=== PATIENT | female | born 2005 | race Hispanic/Latino ===

== ENCOUNTER 2023-10-04 04:16 | Observation (INO) | payer BC ==
[2023-10-04] MEDS ORDERED: ONDANSETRON 4 MG/2 ML VIAL ONE ×2 (04:35→11:34)
[2023-10-04] MEDS ORDERED: NA CHLORIDE 0.9% 1,000 ML ONE ×2 (04:35→08:31)
[2023-10-04] MEDS ORDERED: MORPHINE 4 MG/ML SYR ONE (04:35)
[2023-10-04 05:09] LABS: Sqamous Epithelial <5 /HPF (None Seen); Urine Bacteria None Seen /HPF (<20); Urine Bilirubin NEGATIVE (Negative); Urine Blood Negative (Negative); Urine Clarity Extremely Turbid (Clear); Urine Color Light-Yellow (Yellow); Urine Culture Reflex Order NOT NEEDED; Urine Glucose NEGATIVE (Negative); Urine Ketones NEGATIVE (Negative); Urine Microscopic Reflex YN ORDER UMIC; Urine Mucus Slight /HPF (None Seen); Urine Nitrite NEGATIVE (Negative); Urine Protein 1+ (Negative); Urine RBC None Seen /HPF (None Seen); Urine Urobilinogen Normal (Normal); Urine WBC <5 /HPF (<5); Urine pH 8.5 (5.0-7.0)
[2023-10-04 05:13] LABS: Absolute Lymphocytes (CBC) 1.1 K/uL (0.7-4.9); Absolute Monocytes 0.7 K/uL (0.1-1.3); Absolute Neutrophil 13.3 K/uL (1.8-8.0); Basophils % 0.2 % (0-1.3); Eosinophils % 0.2 % (0-4.4); Hematocrit 40.7 % (36.0-45.0); Hemoglobin 13.6 g/dL (12.0-15.0); Lymphocytes % 7.4 % (15.3-44.8); MCH 30.1 pg (27.0-35.0); MCHC 33.4 g/dL (32.0-36.0); MCV 90.1 fL (80-100); MPV 8.5 fL (7.6-11.3); Monocytes % 4.6 % (3.3-12.3); Neutrophils % 87.6 % (41.7-73.7); Platelets 252 thou/uL (152-406); RBC Red Blood Cell Count 4.52 M/uL (3.86-4.86); Red Cell Distribution Width 13.1 % (12.1-15.2)
[2023-10-04 05:27] LABS: Albumin 4.4 g/dL (3.4-5.0); Albumin/Globulin Ratio 1.3 (1.1-1.8); Anion Gap 8.1 mEq/L (5.0-15.0); Bilirubin Total 0.9 mg/dL (0.2-1.0); Globulin 3.4 g/dL (2.3-3.5); Potassium 4.1 mEq/L (3.5-5.1); Protein, Total 7.8 g/dL (6.4-8.2)
[2023-10-04 05:46] LABS: Band Neutrophils 13 % (0-1); Differential Total Cells Count 100; Lymphocytes 3 % (15-42); Monocytes 2 % (0-10); Segmented Neutrophils 82 % (40-80)
[2023-10-04 05:47] LABS: Blood Morphology Comment NOT SEEN (NOT SEEN); Platelet Estimate ADEQ
[2023-10-04] MEDS ORDERED: PIPERACIL/TAZO 3.375 GM VIAL IV ONE (08:31)
[2023-10-04] MEDS ORDERED: NA CHLORIDE 0.9% 100 ML ONE (08:34)
--- NOTE | 2023-10-04 09:03 | EDPHYS ---
Physician Documentation [facility] Name: Emily Felix Age: 18 yrs Sex: Female : 2005 Arrival Date: 10/04/2023 Time: 04:16 Bed 6 Private MD: ED Physician John Hutchinson HPI: 10/03 05:00 This 18 yrs old Female presents to ER via Ambulatory with complaints of ec2 Abdominal Pain. 05:00 Patient arrives today for evaluation of upper abdominal pain started yesterday. Pain ec2 has been constant, associated nausea. No urinary complaints, patient with irregular menses. No fevers or chills. No previous abdominal surgeries. . 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 - Infectious Disease History:: Denies. - Social history:: Smoking status: Patient denies any tobacco usage or history of. ROS: 05:52 Constitutional: as per hpi ec2 Exam: 05:00 Constitutional: GEN: NAD Head: atraumatic Eyes: EOMI Ears: External ears are ec2 normal. CV: regular rate LUNGS: no respiratory distress ABD: non-distended, soft, tender in the epigastrium, not guarding, not rigid. SKIN: no evidence of rashes MSK: no evidence of trauma NEURO: moves all extremities equally Vital Signs: 04:34 BP 139 / 73; Pulse 87; Resp 16; Temp 98; Pulse Ox 100% ; Weight 68.04 kg; Height 5 ft. vc1 1 in. ; Pain 10/10; 04:34 Body Mass Index 28.34 (68.04 kg, 154.94 cm) vc1 04:34 Pain Scale: Adult vc1 MDM: 04:23 Patient medically screened. ec2 05:00 Data reviewed: vital signs. ED course: Patient arrives today for evaluation of upper ec2 abdominal pain. Examination remarkable abdominal findings as noted above. Will obtain lab work, CT imaging, urine studies. Differential diagnosis include , gastritis, UTI, Appendicitis. . 05:52 ED course: Metabolic profile shows appropriate electrolytes and renal function. CBC ec2 shows slight leukocytosis at 15. Urine is noninfectious appearing, urine is negative for . Pending CT imaging. . 07:11 Transition of care: After a detail discussion of the patient's case, care is ec2 transferred to John Hutchinson MD. 10/03 04:44 Order name: Comprehensive Metabolic Panel; Complete Time: 05:52 EDMS 10/03 04:44 Order name: Lipase; Complete Time: 05:52 EDMS 10/03 04:44 Order name: CBC with Automated Diff; Complete Time: 05:52 EDMS 10/03 04:47 Order name: Urinalysis w/ reflexes; Complete Time: 05:09 EDMS 10/03 04:47 Order name: Test, Urine; Complete Time: 05:09 EDMS 10/03 05:15 Order name: Manual Differential; Complete Time: 05:52 EDMS 10/03 04:46 Order name: Abdomen EDMS 10/03 04:28 Order name: IV Saline Lock; Complete Time: 04:46 ec2 10/03 04:28 Order name: Labs collected and sent; Complete Time: 04:46 ec2 Administered Medications: 04:45 Drug: NS 0.9% IV 1000 ml IV at 1 bolus Per protocol; 1000 mL bolus Route: IV; Rate: 1 lg3 bolus; Site: right antecubital; 05:49 Follow up: Response: No adverse reaction; IV Status: Completed infusion; IV Intake: lg3 1000ml 04:45 Drug: Ondansetron IVP 4 mg IVP once; over 2 minutes Route: IVP; Site: right antecubital;lg3 05:50 Follow up: Response: No adverse reaction; Marked relief of symptoms lg3 04:45 Drug: morphine IVP or IV 4 mg IVP once over 4 mins Route: IVP; Infused Over: 4 mins; lg3 Site: right antecubital; 05:50 Follow up: Response: No adverse reaction; Marked relief of symptoms lg3 08:54 Drug: Piperacillin-Tazobactam IVPB 3.375 grams IVPB once over 60 mins; (mix in NS 100 ko1 mL) Route: IVPB; Infused Over: 60 mins; Site: right antecubital; 08:57 Drug: NS 0.9% IV 1000 ml IV at 125 ml/hr continuous Route: IV; Rate: 125 ml/hr; Site: ko1 right antecubital; Disposition Summary: 10/04/23 08:17 Hospitalization Ordered Notes: Hospitalization Status: Observation rt Provider: Suhail Alvarez rt Location: Operating Room rt Condition: Stable rt Problem: new rt Symptoms: have improved rt Bed/Room Type: Standard rt Room Assignment: rt Diagnosis - Unspecified acute appendicitis rt Discharge Instructions: - Discharge Summary Sheet ec2 - Viral Gastroenteritis, Adult, [id number] ec2 Forms: - Medication Reconciliation Form rt - SBAR form rt - Leadership Thank You Letter rt Prescriptions: - Zofran 4 mg Oral Tablet - take 1 tablet ORAL route every 12 hours As needed; 20 tablet; Refills: 0, ec2 Product Selection Permitted Signatures: Dispatcher [employer] EDMS Denise Bland RN RN lg3 Marcia Luis RN RN 1 Nasra Peralta RN RN ko1 John Hutchinson MD MD rt Jese Lewis MD MD ec2 Corrections: (The following items were deleted from the chart) 09:03 08:54 Abdomen Pelvis W Con+CT.RAD.BRZ ordered. EDMS EDMS 11:16 08:54 CBC+H.LAB.BRZ ordered. EDMS EDMS
--- NOTE | 2023-10-04 09:03 | ER ---
Nurse's Notes [facility] Name: Emily Felix Age: 18 yrs Sex: Female : 2005 Arrival Date: 10/04/2023 Time: 04:16 Bed 6 Private MD: Diagnosis: Unspecified acute appendicitis Presentation: 10/03 04:34 Chief complaint: Patient states: sharp epigastric pain and vomited 4 times. Coronavirus vc1 screen: Client denies travel out of the [place] in the last 14 days. At this time, the client does not indicate any symptoms associated with coronavirus-19. Ebola Screen: Patient negative for fever greater than or equal to 101.5 degrees Fahrenheit, and additional compatible Ebola Virus Disease symptoms Patient denies exposure to infectious person. Patient denies travel to an Ebola-affected area in the 21 days before illness onset. No symptoms or risks identified at this time. Initial Sepsis Screen: Does the patient meet any 2 criteria? No. Patient's initial sepsis screen is negative. Does the patient have a suspected source of infection? No. Patient's initial sepsis screen is negative. Risk Assessment: Do you want to hurt yourself or someone else? Patient reports no desire to harm self or others. Onset of symptoms was October 03, 2023. Care prior to arrival: None. Activity prior to arrival: None. Mechanism of Injury: No Mechanism of Injury. Transition of care: patient was not received from another setting of care. 04:34 Method Of Arrival: Ambulatory vc1 04:34 Acuity: EBER 3 vc1 Triage Assessment: 04:38 General: Appears in no apparent distress. uncomfortable, Behavior is calm, cooperative, vc1 appropriate for age, Reports feeling ill for. Pain: Complains of pain in epigastric area Pain does not radiate. Pain currently is 10 out of 10 on a pain scale. Quality of pain is described as sharp, Pain began yesterday midday Is continuous, intermittent, Also complains of nausea, vomited 4 times. EENT: No deficits noted. No signs and/or symptoms were reported regarding the EENT system. Neuro: Level of Consciousness is awake, alert, obeys commands, Oriented to person, place, time, situation, Appropriate for age. Cardiovascular: No deficits noted. Heart tones S1 S2 Capillary refill < 3 seconds Patient's skin is warm and dry. Respiratory: Airway is patent Respiratory effort is even, unlabored, Respiratory pattern is regular, symmetrical, Breath sounds are clear bilaterally. GI: Abdomen is flat, non-distended, Bowel sounds present X 4 quads. Abd is soft and non tender. GI: Reports epigastric pain, nausea, vomiting. : No deficits noted. No signs and/or symptoms were reported regarding the genitourinary system. Derm: No deficits noted. No signs and/or symptoms reported regarding the dermatologic system. Skin is intact, is healthy with good turgor, Skin is dry, Skin is normal, Skin temperature is warm. Musculoskeletal: No deficits noted. No signs and/or symptoms reported regarding the musculoskeletal system. 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 - Infectious Disease History:: Denies. - Social history:: Smoking status: Patient denies any tobacco usage or history of. Screenin:[address] [facility] ED Fall Risk Assessment (Adult) History of falling in the last 3 months, vc1 including since admission No falls in past 3 months (0 pts) Confusion or Disorientation No (0 pts) Intoxicated or Sedated No (0 pts) Impaired Gait No (0 pts) Mobility Assist Device Used No (0 pt) Altered Elimination No (0 pt) Score/Fall Risk Level 0 - 2 = Low Risk Oriented to surroundings, Maintained a safe environment, Educated pt \T\ family on fall prevention, incl call for assistance when getting out of bed. Abuse screen: Denies threats or abuse. Nutritional screening: No deficits noted. Tuberculosis screening: No symptoms or risk factors identified. Assessment: 04:40 General: See triage assessment. vc1 05:49 Reassessment: Patient appears in no apparent distress at this time. Patient and/or lg3 family updated on plan of care and expected duration. Pain level reassessed. Patient is alert, oriented x 3, equal unlabored respirations, skin warm/dry/pink. Patient states feeling better. Patient states symptoms have improved. Vital Signs: 04:34 BP 139 / 73; Pulse 87; Resp 16; Temp 98; Pulse Ox 100% ; Weight 68.04 kg; Height 5 ft. vc1 1 in. ; Pain 10/10; 04:34 Body Mass Index 28.34 (68.04 kg, 154.94 cm) vc1 04:34 Pain Scale: Adult vc1 ED Course: 04:19 Patient arrived in ED. gm2 04:20 Jese Lewis MD is Attending Physician. ec2 04:37 Triage completed. vc1 04:37 Arm band placed on right wrist. vc1 04:41 Patient has correct armband on for positive identification. Bed in low position. Call vc1 light in reach. Pulse ox on. NIBP on. 04:44 Denise Bland RN is Primary Nurse. lg3 04:44 Door closed. Noise minimized. Warm blanket given. Pillow given. Family accompanied lg3 patient. 04:44 Initial lab(s) drawn, by me, sent to lab. Urine collected: clean catch specimen, clear. lg3 Inserted saline lock: 20 gauge in right antecubital area, using aseptic technique. Blood collected. 04:45 Lipase Sent. lg3 04:45 CBC with Automated Diff Sent. lg3 04:45 Comprehensive Metabolic Panel Sent. lg3 05:42 Abdomen In Process Unspecified. EDMS 07:14 Attending Physician role handed off by Jese Lewis MD rt 07:14 John Hutchinson MD is Attending Physician. rt 08:16 Suhail Alvarez MD is Hospitalizing Provider. rt Administered Medications: 04:45 Drug: NS 0.9% IV 1000 ml IV at 1 bolus Per protocol; 1000 mL bolus Route: IV; Rate: 1 lg3 bolus; Site: right antecubital; 05:49 Follow up: Response: No adverse reaction; IV Status: Completed infusion; IV Intake: lg3 1000ml 04:45 Drug: Ondansetron IVP 4 mg IVP once; over 2 minutes Route: IVP; Site: right antecubital;lg3 05:50 Follow up: Response: No adverse reaction; Marked relief of symptoms lg3 04:45 Drug: morphine IVP or IV 4 mg IVP once over 4 mins Route: IVP; Infused Over: 4 mins; lg3 Site: right antecubital; 05:50 Follow up: Response: No adverse reaction; Marked relief of symptoms lg3 08:54 Drug: Piperacillin-Tazobactam IVPB 3.375 grams IVPB once over 60 mins; (mix in NS 100 ko1 mL) Route: IVPB; Infused Over: 60 mins; Site: right antecubital; 08:57 Drug: NS 0.9% IV 1000 ml IV at 125 ml/hr continuous Route: IV; Rate: 125 ml/hr; Site: ko1 right antecubital; Medication: 04:41 VIS not applicable for this client. vc1 Intake: 05:49 IV: 1000ml; Total: 1000ml. lg3 Outcome: 08:17 Decision to Hospitalize by Provider. rt 11:21 Patient left the ED. bd Signatures: Dispatcher [employer] EDAllie Sauer Lacie RN RN lg3 Marcia Luis RN RN vc1 Nasra Peralta RN RN ko1 John Hutchinson MD MD rt Jese Lewis MD MD 2 [place] 2
[2023-10-04] MEDS ORDERED: LIDOCAINE 1% MPF 5 ML VIAL ONE (11:34)
[2023-10-04] MEDS ORDERED: FENTANYL CITR 100 MCG/2 ML ONE (11:34)
[2023-10-04] MEDS ORDERED: propofoL 200 MG/20 ML VIAL IV ONE (11:34)
[2023-10-04] MEDS ORDERED: KETOROLAC 30 MG/ML INJ ONE (11:34)
[2023-10-04] MEDS: Ringers Lactate 1,000 ML IV ONE (11:35)
[2023-10-04] MEDS ORDERED: dexAMETHasone 4 MG/ML VIAL ONE (11:35)
[2023-10-04] MEDS ORDERED: MIDAZOLAM HCL 2 MG/2 ML INJ ONE (11:35)
[2023-10-04] MEDS ORDERED: ROCURONIUM 50 MG/5 ML VIAL IV ONE (11:37)
[2023-10-04] MEDS ORDERED: SODIUM CHLORIDE 0.9% 10ML INJ IV PRN (12:23)
[2023-10-04] MEDS ORDERED: Mastisol Adhesive Liq ONE (12:23)
[2023-10-04] MEDS ORDERED: ONDANSETRON 4 MG/2 ML VIAL IV PRN (12:23)
[2023-10-04] MEDS ORDERED: NEOSTIGMINE 1 MG/ML -10 ML VIAL ONE (12:30)
--- NOTE | 2023-10-04 12:34 | P.BOP ---
Preoperative diagnosis: Acute retrocecal appendicitis Postoperative diagnosis: same Primary procedure: Laparoscopic appendectomy Corporate Law Specialist: Monica Garber ([place]) Estimated blood loss: <10cc Specimen: cary Findings: as above Anesthesia: General Complications: None Transferred to: Recovery Room Condition: Good
[2023-10-04] MEDS: MEPERIDINE HCL 25 MG/ML SYR ONE (12:45)
[2023-10-04] MEDS: FENTANYL CITR 100 MCG/2 ML ONE (13:05)
[2023-10-04 13:37] VITALS: O2SAT 98
[2023-10-04 14:48] VITALS: BMI 28.3
[2023-10-04] MEDS: NA CHLORIDE 0.9% 1,000 ML IV SCH (14:52)
[2023-10-04] MEDS: CEFOXITIN 1 GM in NA CHLORIDE 0.9% 50 ML IVPB SCH (17:18)
[2023-10-04] MEDS: HYDROCODONE/APAP 5/325 MG TAB PO PRN (20:32)
--- NOTE | 2023-10-04 22:18 | HP ---
Date of Admission: 10/04/2023 Diagnosis: Acute appendicitis. History Of Present Illness: This is a case of a 18-year-old patient, since yesterday started with ab dominal pain from the periumbilical region to the right side of the abdomen, did not get better, asso ciated with nausea. Came to the ER early this morning and after diagnosis and imaging done, found to have acute appendicitis, and a surgical consult was obtained. She denies any dysuria, hematuria, he matochezia, melena. Denies any recent traveling out of the country. Denies any family member sick a t home. Allergies: NONE. Medications: None. Medical Problems: None. Surgeries: None. Social History: She does not smoke. She does not drink alcohol. 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 Review of Systems: Nausea, abdominal pain, see HPI. Physical Examination: Vital Signs: Stable. General: Patient is awake, alert. HEENT: Pupils are equal and reactive, anicteric. Neck: Supple. Chest: Clear. Abdomen: Periumbilical right lower quadrant tenderness. Breasts/Pelvic/Rectal: Deferred. Extremities: Good capillary refill. Neuro: Cranial nerves 2-12 grossly within normal limits. Laboratory Data: Blood work shows a WBC count of 15.1 with hemoglobin of 13.6 and platelets of 252. Sodium is 135, glucose 130. Radiology report shows the appendix is retrocecal, mildly dilated, wall thickening, and trace of fluid near the distal portion. Suspected for appendicitis. Assessment: This is a 18-year-old patient with abdominal pain, leukocytosis, nausea, and CAT scan sh ows distended dilated appendix with periappendiceal fluid and wall thickening consistent with appendi citis. The patient was fully explained the option of laparoscopic, possible open appendectomy with b enefits, alternatives, and risks including, but not limited to infection, bleeding, damage to adjacen t structures, anesthesia complication, negative appendix, [place], and even . She also understands t his may not relieve symptoms. She might need more than one surgical intervention. She understood, s igned a consent. The patient was immediately booked in OR. DANO/CHELSEA Voice ID: [id number]
--- NOTE | 2023-10-04 22:23 | OP ---
Date of Procedure: 10/04/2023 Surgeon: Suhail Alvarez MD Preoperative Diagnoses: Nausea, abdominal pain, acute appendicitis. Postoperative Diagnoses: Nausea, abdominal pain, acute appendicitis. Procedure: Laparoscopic appendectomy. Estimated Blood Loss: Less than 10 cc. Findings: Acute appendicitis. Anesthesia: General plus local. Complications: None. Indications: This is a case of a 18-year-old patient who came to us with acute abdominal pain, intra ctable, not improving, found to have acute appendicitis and leukocytosis. The benefits, alternatives , and risks of laparoscopic, possible open appendectomy were fully explained, which include, but not limited to infection, bleeding, damage to adjacent structures, anesthesia complication, recurrence, M I, and even . She also understands this may not relieve symptoms. She might need more than one surgical intervention. She understood and signed a consent. Procedure In Detail: The patient was brought to the operating room, placed in supine position. Anes thesia was done without complication. Abdomen was prepped and draped in usual sterile fashion. Weston mackenzie 0.5% was injected for local anesthetic, followed by sharp incision of the skin in the infraumbil ical region after time-out. The incision was carried down to fascia, which was opened under direct v ision. Peritoneum was encountered, opened under direct vision. Vicryl #1 was placed inside the fasc ia. Lety trocar was carefully introduced. No bleeding was obtained. After that, I placed 2 more trocars, 5 mm, each one of them in the suprapubic and left lower quadrant under direct visualization. This allowed me to visualize the area of the right lower quadrant. We confirmed the findings of re trocecal appendix. We were able to with the help of Endo Elida and Bovie cauterizer release the cary endix. Then, we created a window in the base of the appendix and transected that with Endo SHARYN 45 mm nonvascular and the mesoappendix with Endo SHARYN 45 mm vascular. Appendix was removed from the abdomi nal cavity using Endo Catch through the umbilical incision. The area was irrigated. Suction was don e. At that moment, I proceeded to remove the trocars under direct vision. Deflated pneumoperitoneum . Closed the fascia with #1 Vicryl, irrigated subcutaneous tissue and closed that with 3-0 chromic, and the skin in a subcuticular fashion with 3-0 chromic and Steri-Strip on top. Sponge count and ins trument counts were correct. The patient tolerated procedure well. The patient was sent to recovery in stable condition. DANO/CHELSEA Voice ID: [id number] Report ID: [id number]
--- NOTE | 2023-10-04 23:08 | RAD REPORT ---
EXAM DESCRIPTION: CT - Abdomen Pelvis W Contrast - 10/04/2023 7:18 am TECHNIQUE: Axial images were taken through the abdomen and pelvis after the administration of IV con trast. All CT scans at this facility use dose modulation, iterative reconstruction, and/or weight bas ed dosing when appropriate to reduce radiation dose to as low as reasonably achievable CLINICAL HISTORY: ABD PAIN COMPARISON: One FINDINGS: Lung bases: The lung bases appear unremarkable. ABDOMEN: The liver appears unremarkable. There is no evidence for mass or intrahepatic biliary ductal dilatati on. The gallbladder appears unremarkable. There is no evidence for gallbladder wall thickening or per icholecystic fluid. The adrenal glands are normal. The pancreas is normal without ductal dilatation. The spleen is normal. The kidneys appear unremarkable. There is no evidence for hydronephrosis or sto ne. The large and small bowel of the abdomen and pelvis appears unremarkable. The appendix is questionabl y seen in the pelvis where it appears mildly dilated with wall thickening and trace free fluid seen n ear the distal portion (sagittal images 62-64, coronal 30-50). It is to determine if the suspected ap pendix is blind ending given the adjacent ovarian tissue and bowel loops. Pelvis: The aorta is normal in caliber. There is no evidence for pathologically enlarged adenopathy. The bladder appears unremarkable. There is no free air or free fluid. The uterus and adnexa are unrem arkable. The soft tissues and osseous structures are normal. IMPRESSION: 1. The appendix is questionably seen retrocecally and appears mildly dilated with wall thickening and trace free fluid seen near the distal portion. Difficult to determine if the suspecte d appendix is blind ending. Correlate for acute appendicitis. Electronically signed by: Alok Workman MD 10/04/2023 07:12 AM CDT Due to temporary technical issues with the PACS/Fluency reporting system, reports are being signed by the in house radiologists without review as a courtesy to insure prompt reporting. The interpreting radiologist is fully responsible for the content of the report.
[2023-10-05] MEDS: MORPHINE 4 MG/ML SYR IV PRN (01:21)
[2023-10-05 04:26] LABS: Absolute Lymphocytes (CBC) 1.8 K/uL (0.7-4.9); Absolute Monocytes 0.6 K/uL (0.1-1.3); Absolute Neutrophil 7.6 K/uL (1.8-8.0); Basophils % 0.2 % (0-1.3); Eosinophils % 0.1 % (0-4.4); Hemoglobin 11.8 g/dL (12.0-15.0); MCH 30.6 pg (27.0-35.0); MCHC 33.8 g/dL (32.0-36.0); MCV 90.3 fL (80-100); MPV 8.4 fL (7.6-11.3); Monocytes % 6.2 % (3.3-12.3); Neutrophils % 75.5 % (41.7-73.7); Platelets 203 thou/uL (152-406); RBC Red Blood Cell Count 3.87 M/uL (3.86-4.86); Red Cell Distribution Width 13.2 % (12.1-15.2)
[2023-10-05 04:38] LABS: Anion Gap 6.9 mEq/L (5.0-15.0); Potassium 3.9 mEq/L (3.5-5.1)
[2023-10-05] MEDS: PANTOPRAZOLE 40 MG INJ IVP SCH (08:27)
--- NOTE | 2023-10-05 10:41 | P.DS ---
Admission Date: 10/04/23 Discharge Date: 10/05/23 Disposition: ROUTINE DISCHARGE Discharge Condition: GOOD - Problems (1) Acute appendicitis Current Visit: Yes Status: Acute Qualifiers: Acute appendicitis type: with localized peritonitis Brief History of Present Illness: see HPI Vital Signs/Physical Exam: Temp Pulse Resp BP Pulse Ox 98.2 F 53 16 106/47 L 98 10/05/23 08:00 10/05/23 08:00 10/05/23 08:00 10/05/23 08:00 10/05/23 08:00 General: Alert, In no apparent distress, Oriented x3, Cooperative HEENT: Normocephalic Neck: Supple Respiratory: Normal air movement Cardiovascular: Normal pulses Gastrointestinal: Normal bowel sounds, Soft and benign Musculoskeletal: No erythema, No tenderness, No warmth Integumentary: No rashes, No breakdown Neurological: Normal speech Laboratory Data at Discharge: WBC 10.10 thou/uL (4.3-10.9) 10/05/23 03:47 Hgb 11.8 g/dL (12.0-15.0) L D 10/05/23 03:47 Hct 35.0 % (36.0-45.0) L 10/05/23 03:47 Plt Count 203 thou/uL (152-406) 10/05/23 03:47 Sodium 141 mEq/L (136-145) D 10/05/23 03:47 Potassium 3.9 mEq/L (3.5-5.1) 10/05/23 03:47 BUN 11 mg/dL (7-18) 10/05/23 03:47 Creatinine 0.73 mg/dL (0.55-1.02) 10/05/23 03:47 Glucose 105 mg/dL (74-106) 10/05/23 03:47 Total Bilirubin 0.9 mg/dL (0.2-1.0) 10/04/23 04:32 AST 12 U/L (15-37) L 10/04/23 04:32 ALT 29 U/L (13-56) 10/04/23 04:32 Alkaline Phosphatase 64 U/L (45-117) 10/04/23 04:32 Lipase 39 U/L (13-75) 10/04/23 04:32 Home Medications: NK [No Home Meds] 10/04/23 Diet: Regular Activity: No lifting more than 10 lbs Followup: NONE,NONE [Primary Care Provider] - Suhail Alvarez MD [ACTIVE - CAN ADMIT] - 1 Week
[2023-10-05 12:09] VITALS: BP 105/49; TEMP 98.1
== END 2023-10-05 13:08 | disposition home or self-care (01) ==
LOC: ER 04:16 → ERHOLD 12:23 → 2ND 12:54
PROVIDERS: ADMIT Surgery; ATTEND Surgery
PROC: 0DTJ4ZZ Resection of Appendix, Percutaneous Endoscopic Approach (ICD-10-PCS; principal; 2023-10-04 12:15)
DX: K35.80 Unspecified acute appendicitis (principal); R10.9 Unspecified abdominal pain; R11.10 Vomiting, unspecified
CPT/HCPCS: 85025 ×2; 81001; 80048; 36415; 81025; 88304; 83690; 80053; 74177; 94010; 44970; Q9967; J2704; J1100; J2710; J2001; J2543; C9113; J2250; J3010 ×2; J2175; J0694 ×3; J2405 ×2; J7120; J7030 ×4; 96361; 96374; 96375; 99284; G0378